=== PATIENT | female | born 1985 | race Caucasian/White ===

== ENCOUNTER 2016-10-02 19:36 | Emergency (ER) | payer OTHER ==
[2016-10-02 19:47] VITALS: BP 120/68
[2016-10-02] MEDS ORDERED: Ketorolac INJ* 60 MG/2 ML VIAL IM ONE (21:48)
--- NOTE | 2016-10-02 21:54 | UC ---
Back Pain HPI - HPI Summary HPI Summary: 31 y/o female presents to the urgent care c/o mid back pain since this morning. Pt reports she has 1 y/o twins and lately she has been doing some heavy lifting. This morning when she was at work she did a sudden movement and her back pain was exacerbated. Pain is 6/10 with movement and 4/10 at rest. No radiation, no tingling or numbness over the Lower extremities. Pt denies fever , SOB, chest pain, N/V/D, urinary or fecal incontinence or saddle anesthesia. - History of Current Complaint Hx Obtained From: Patient Hx Last Menstrual Period: 09/17/16 ?: No Onset/Duration: Gradual Onset, Lasting Days, Still Present Timing: Constant Severity Initially: Mild Severity Currently: Moderate Pain Intensity: 6 Pain Scale Used: 0-10 Numeric Back Pain: Is Discrete @ - mid back pain Character: Spasmodic Aggravating: Movement, Lifting, Bending Alleviating: Rest Associated Signs And Symptoms: Positive: Pain with Weight Bearing. Negative: Swelling, Fever, Weakness, Numbness, Tingling, Flank Pain, Bladder Incontinence , Bowel Incontinence, Weight Loss - Risk Factors AAA Risk Factors: Negative TAD Risk Factors: Negative Cauda Equina Risk Factors: Negative Epidural Abscess Risk Factors: Negative <Promise Brewer - Last Filed: 10/04/16 17:40> <Patricia Moreno - Last Filed: 10/04/16 20:46> - History of Current Complaint Chief Complaint: UCBackPain Stated Complaint: MIDDLE BACK PAIN Time Seen by Provider: 10/02/16 21:36 - Allergies/Home Medications Allergies/Adverse Reactions: Allergies Allergy/AdvReac Type Severity Reaction Status Date / Time No Known Allergies Allergy Verified 08/30/14 07:16 PMH/Surg Hx/FS Hx/Imm Hx Previously Healthy: Yes - Surgical History Surgical History: Yes Surgery Procedure, Year, and Place: 2006 [facility]; lap for fertility diag Mar 2014 ; wisdom teeth - Family History Known Family History: Positive: None - Social History Occupation: Employed Full-time Lives: With Family Alcohol Use: Occasionally Substance Use Type: None Smoking Status (MU): Never Smoked Tobacco <Promise Brewer - Last Filed: 10/04/16 17:40> Review of Systems Constitutional: Negative Skin: Negative Eyes: Negative ENT: Negative Respiratory: Negative Cardiovascular: Negative Gastrointestinal: Negative Genitourinary: Negative Motor: Negative Neurovascular: Negative Musculoskeletal: Other: - mid back pain Neurological: Negative Psychological: Negative All Other Systems Reviewed And Are Negative: Yes <Pormise Brewer - Last Filed: 10/04/16 17:40> Physical Exam Triage Information Reviewed: Yes Appearance: Well-Appearing, No Pain Distress, Well-Nourished, Thin Vital Signs: Initial Vital Signs Temp 97.7 F 10/02/16 19:44 Pulse 74 10/02/16 19:44 Resp 18 10/02/16 19:44 BP 120/68 10/02/16 19:44 Pulse Ox 100 10/02/16 19:44 Vital Signs Reviewed: Yes Eye Exam: Normal Eyes: Positive: Conjunctiva Clear - PERRLA, EOMI, fundi grossly normal ENT Exam: Normal ENT: Positive: Normal ENT inspection, Hearing grossly normal, Pharynx normal, TMs normal Dental Exam: Normal Neck exam: Normal Neck: Positive: Supple, Nontender, No Lymphadenopathy Respiratory Exam: Normal Respiratory: Positive: Chest non-tender, Lungs clear, Normal breath sounds Cardiovascular Exam: Normal Cardiovascular: Positive: RRR, No Murmur, Pulses Normal, Brisk Capillary Refill Abdominal Exam: Normal Abdomen Description: Positive: Nontender, No Organomegaly, Soft. Negative: CVA Tenderness (R), CVA Tenderness (L) Bowel Sounds: Positive: Present Musculoskeletal: Positive: Strength Intact, No Edema, Other: - BACK: Patient walked into the urgent care room with symmetric ambulation, No signs of limping , antalgic, able to bear weight. No signs of trauma, No masses palpated or scoliosis observed. Point tenderness at the level of T12-L1, paraspinal muscle spasm and tenderness at the same level. No CVAT, no flank ecchymosis . No sacroiliac notch tenderness, No saddle anesthesia.ROM: limited flexion/ extension/ lateral bending and rotation due to pain, Straight Leg Raise: negative. Patellar reflexes: brisk, symmetric Muscle strength lower extremities. Dorsiflexion/ plantar flexion of ankles. Heel/ toe walk. Lower extremities: Femoral, popliteal, posterior tibial, and dorsalis pedis pulses WNL Neurological Exam: Normal Psychological Exam: Normal Skin Exam: Normal <DaniellaPromise - Last Filed: 10/04/16 17:40> Vital Signs: Initial Vital Signs Temp 97.7 F 10/02/16 19:44 Pulse 74 10/02/16 19:44 Resp 18 10/02/16 19:44 BP 120/68 10/02/16 19:44 Pulse Ox 100 10/02/16 19:44 <Patricia Moreno - Last Filed: 10/04/16 20:46> Back Pain Course/Dx - Course Course Of Treatment: 31 y/o female presents to the urgent care c/o mid back pain since this morning. Pt reports she has 1 y/o twins and lately she has been doing some heavy lifting. This morning when she was at work she did a sudden movement and her back pain was exacerbated. Pain is 6/10 with movement and 4/10 at rest. No radiation, no tingling or numbness over the Lower extremities. Pt denies fever, SOB, chest pain, N/V/D, urinary or fecal incontinence or saddle anesthesia.Hx obtained. PE abnormal findings:BACK: Patient walked into the urgent care room with symmetric ambulation, No signs of limping, antalgic, able to bear weight. No signs of trauma, No masses palpated or scoliosis observed. Point tenderness at the level of T12-L1, paraspinal muscle spasm and tenderness at the same level. No CVAT, no flank ecchymosis . No sacroiliac notch tenderness, No saddle anesthesia.ROM: limited flexion/ extension/ lateral bending and rotation due to pain, Straight Leg Raise: negative. Patellar reflexes: brisk, symmetric Muscle strength lower extremities. Dorsiflexion/ plantar flexion of ankles. Heel/ toe walk. Lower extremities: Femoral, popliteal, posterior tibial, and dorsalis pedis pulses WNL. Pt Pr Flexeril and Naproxen PO to alleviate symptoms. Advised to wear a back support and avoid strenuou excercise or carrying her twins until symptoms resolve. F/u with PCP for further evaluation and treatment if symptoms do not improve. Pt understood and agreed and left the clinic ambulating. - Differential Dx/Diagnosis Differential Diagnosis/HQI/PQRI: Herniated Disc, Renal Colic, Strain, Sprain, Other - back spasms Provider Diagnoses: 1- Acute back pain w/ muscle spasm <Promise Brewer - Last Filed: 10/04/16 17:40> Discharge <Promise Brewer - Last Filed: 10/04/16 17:40> <Patricia Moreno - Last Filed: 10/04/16 20:46> - Discharge Plan Condition: Stable Disposition: HOME Prescriptions: Cyclobenzaprine TAB* [Flexeril 10 MG TAB*] 10 mg PO TID PRN #21 tab PRN Reason: Spasms - Back Naproxen TAB* [Naprosyn 250 mg TAB*] 500 mg PO Q8H PRN #30 tab PRN Reason: Pain Patient Education Materials: Acute Low Back Pain (ED), Muscle Spasm (ED) Referrals: Kentrell Gillis MD [Primary Care Provider] - 3 Days Additional Instructions: Please take medications as directed to alleviate symptoms of pain and spasm. If symptoms do not improve please return to the urgent care or f/u with your PCP for further evaluation and treatment. Please rest and avoid strenuous exercise or heavy lifting. Wear a back support until symptoms improve. Attestation Statement User Type: Provider - I was available for consult. This patient was seen by the advanced practice provider. The patient was not presented to, seen by, or examined by me.-Jeremy <Patricia Moreno - Last Filed: 10/04/16 20:46>
== END 2016-10-02 22:21 | disposition home or self-care (01) ==
LOC: UCEAST 19:36
DX: M54.9 Dorsalgia, unspecified (principal); M62.830 Muscle spasm of back; Z90.49 Acquired absence of other specified parts of digestive tract
CPT/HCPCS: 96372; 99212; G0463; J1885

== ENCOUNTER 2016-12-24 11:17 | Emergency (ER) | payer OTHER ==
[2016-12-24 11:27] VITALS: BP 134/72
--- NOTE | 2016-12-24 12:52 | UC ---
Ear Complaint HPI - HPI Summary HPI Summary: Patient presents with complaints of decreased hearing of both ears. She states she has a history of cerumen impactions and this feels the same way. She denies fever, chills, ear pain, sore throat associated with her concerns today. - History of Current Complaint Chief Complaint: UCEar Stated Complaint: EAR COMPLAINT Time Seen by Provider: 12/24/16 11:25 Hx Obtained From: Patient Hx Last Menstrual Period: 12/07/16 Onset/Duration: Gradual Onset, Lasting Days Pain Intensity: 0 Pain Scale Used: 0-10 Numeric Aggravating Factors: Nothing - Allergies/Home Medications Allergies/Adverse Reactions: Allergies Allergy/AdvReac Type Severity Reaction Status Date / Time No Known Allergies Allergy Verified 12/24/16 11:27 Home Medications: Home Medications NK [No Home Medications Reported] 12/24/16 [History Confirmed 12/24/16] PMH/Surg Hx/FS Hx/Imm Hx Previously Healthy: Yes - Surgical History Surgical History: Yes Surgery Procedure, Year, and Place: 2006 em[facility]; lap for fertility diag Mar 2014 ; wisdom teeth - Family History Known Family History: Positive: None - Social History Occupation: Employed Full-time Lives: Alone Alcohol Use: Occasionally Substance Use Type: None Smoking Status (MU): Never Smoked Tobacco - Immunization History Most Recent Influenza Vaccination: 12/18/16 Review of Systems Skin: Negative Eyes: Negative ENT: Negative, Other - decreased hearing Respiratory: Negative Cardiovascular: Negative Gastrointestinal: Negative Genitourinary: Negative Motor: Negative Neurovascular: Negative Musculoskeletal: Negative All Other Systems Reviewed And Are Negative: Yes Physical Exam Triage Information Reviewed: Yes Appearance: Well-Appearing Vital Signs: Initial Vital Signs Temp 98.2 F 12/24/16 11:22 Pulse 72 12/24/16 11:22 Resp 16 12/24/16 11:22 BP 134/72 12/24/16 11:22 Pulse Ox 100 12/24/16 11:22 Eye Exam: Normal ENT Exam: Normal ENT: Positive: Muffled/hoarse voice - b/l cerumen present. Dental Exam: Normal Neck exam: Normal Neck: Positive: 1 Respiratory Exam: Normal Cardiovascular Exam: Normal Abdominal Exam: Normal Musculoskeletal Exam: Normal Neurological Exam: Normal Psychological Exam: Normal Skin Exam: Normal Ear Complaint Course/Dx - Course Course Of Treatment: Patient presents with decreased hearing, and b/l cerumen present. The ears were irriagated with complete resolution of the hearing loss. Re-evaluation revealed transparent TM's. She tolerated the procedure well, and was discharged home in stabl condition. - Differential Dx/Diagnosis Differential Diagnosis/HQI/PQRI: Cerumen Impaction Provider Diagnoses: cerumen inpaction Discharge - Discharge Plan Condition: Stable Disposition: HOME Patient Education Materials: Cerumen Impaction (ED) Referrals: Kentrell Gillis MD [Primary Care Provider] -
== END 2016-12-24 12:03 | disposition home or self-care (01) ==
LOC: UCEAST 11:17
DX: H61.20 Impacted cerumen, unspecified ear (principal)
CPT/HCPCS: 99213; G0463

== ENCOUNTER 2017-08-02 12:22 | Emergency (ER) | payer OTHER ==
[2017-08-02 13:23] VITALS: BP 108/72
--- NOTE | 2017-08-02 14:07 | UC ---
Throat Pain/Nasal True HPI - HPI Summary HPI Summary: 32 yo WF c/o B/L sinus and frontal sinus [place], congestion associated with clear nasal drainage x 4 days, worsening - History of Current Complaint Chief Complaint: UCGeneralIllness Stated Complaint: SINUS COMPLAINT Time Seen by Provider: 08/02/17 13:45 Hx Obtained From: Patient Hx Last Menstrual Period: 08/02/17 Onset/Duration: Sudden Onset Severity: Severe Pain Intensity: 6 Cough: Nonproductive Associated Signs & Symptoms: Positive: Negative - Allergies/Home Medications Allergies/Adverse Reactions: Allergies Allergy/AdvReac Type Severity Reaction Status Date / Time No Known Allergies Allergy Verified 08/02/17 13:18 PMH/Surg Hx/FS Hx/Imm Hx - Additional Past Medical History Additional PMH: sinusitis Previously Healthy: Yes - Surgical History Surgical History: Yes Surgery Procedure, Year, and Place: 2006 em[facility]; lap for fertility diag Mar 2014 ; wisdom teeth, September 2015 - Family History Known Family History: Positive: None - Social History Alcohol Use: Occasionally Substance Use Type: None Smoking Status (MU): Never Smoked Tobacco - Immunization History Most Recent Influenza Vaccination: 12/18/16 Review of Systems Constitutional: Negative Skin: Negative Eyes: Negative ENT: Sore Throat, Nasal Discharge, Sinus Congestion, Sinus Pain/Tenderness Respiratory: Negative Cardiovascular: Negative Gastrointestinal: Negative Genitourinary: Negative Motor: Negative Neurovascular: Negative Musculoskeletal: Negative Neurological: Negative Psychological: Negative All Other Systems Reviewed And Are Negative: Yes Physical Exam Triage Information Reviewed: Yes Appearance: Pain Distress Vital Signs: Initial Vital Signs Temp 37.0 C 08/02/17 13:19 Pulse 96 08/02/17 13:19 Resp 18 08/02/17 13:19 BP 108/72 08/02/17 13:19 Pulse Ox 100 08/02/17 13:19 Eye Exam: Normal ENT: Positive: Pharyngeal erythema, Nasal congestion, Nasal drainage, TMs normal , Sinus tenderness, Uvula midline. Negative: Tonsillar swelling, Tonsillar exudate Dental Exam: Normal Neck exam: Normal Neck: Positive: 1 Respiratory: Positive: Rhonchi Cardiovascular Exam: Normal Abdominal Exam: Normal Musculoskeletal Exam: Normal Neurological Exam: Normal Psychological Exam: Normal Skin Exam: Normal Throat Pain/Nasal Course/Dx - Course Course Of Treatment: B/ rhonchorous cough- would old off on taking abx but prescribed to take in case sx worsen - Differential Dx/Diagnosis Provider Diagnoses: acute sinusitis. bronchitis Discharge - Sign-Out/Discharge Documenting (check all that apply): Discharge/Admit/Transfer - Discharge Plan Condition: Stable Disposition: HOME Prescriptions: Azithromycin TAB* [Zithromax TAB (Z-MARIA DEL CARMEN) 250 mg #6 tabs] 2 tab PO .TODAY, THEN 1 DAILY #1 [facility]ia [facility]men Loratadine/Pseudoephedrine [Claritin-D 12 Hour Tablet] 1 each PO BID 10 Days # 20 tab.er.12h Patient Education Materials: Rhinosinusitis (ED), Acute Bronchitis (ED) Referrals: Kentrell Gillis MD [Primary Care Provider] - - Billing Disposition and Condition Condition: STABLE Disposition: HOME
== END 2017-08-02 14:08 | disposition home or self-care (01) ==
LOC: UCEAST 12:22
DX: J01.90 Acute sinusitis, unspecified (principal); J40 Bronchitis, not specified as acute or chronic
CPT/HCPCS: 99212; G0463

== ENCOUNTER 2018-02-16 09:04 | Emergency (ER) | payer OTHER ==
[2018-02-16 09:10] VITALS: BP 122/79
--- NOTE | 2018-02-16 09:13 | UC ---
Throat Pain/Nasal True HPI - HPI Summary HPI Summary: 32 y/o female presents to the urgent care c/o sore throat and a dry cough for the past 4 days. Today she developed mild [place] and body aches, hoarseness. Pain w / swallowing 06/18. Pt has taken Teraflu to alleviate symptoms. She got the influenza vaccine about a month ago. Pt denies fever, SOB, chest pain, abdominal pain, N/v/d. - History of Current Complaint Chief Complaint: UCRespiratory Stated Complaint: SORE THROAT Time Seen by Provider: 02/16/18 09:12 Hx Obtained From: Patient Hx Last Menstrual Period: 02/08/18 Onset/Duration: Gradual Onset, Lasting Days - 4 days, Still Present, Worse Since - today Severity: Moderate Pain Intensity: 6 - sore throat Pain Scale Used: 0-10 Numeric Cough: Nonproductive - dry Associated Signs & Symptoms: Positive: Nasal Discharge - clear - Epiglottits Risk Factors Epiglottis Risk Factors: Negative - Allergies/Home Medications Allergies/Adverse Reactions: Allergies Allergy/AdvReac Type Severity Reaction Status Date / Time No Known Allergies Allergy Verified 02/16/18 09:10 PMH/Surg Hx/FS Hx/Imm Hx Previously Healthy: Yes - Pt denies PMHX - Surgical History Surgical History: Yes Surgery Procedure, Year, and Place: 2006 em[facility]; lap for fertility diag Mar 2014 ; wisdom teeth, September 2015 - Family History Known Family History: Positive: Hypertension - Social History Occupation: Employed Full-time Lives: With Family Alcohol Use: Occasionally Substance Use Type: None Smoking Status (MU): Never Smoked Tobacco - Immunization History Most Recent Influenza Vaccination: 12/18/16 Review of Systems All Other Systems Reviewed And Are Negative: Yes Constitutional: Positive: Negative Skin: Positive: Negative Eyes: Positive: Negative ENT: Positive: Sore Throat, Nasal Discharge - clear, Other - PND clear, hoarseness Respiratory: Positive: Cough - dry Cardiovascular: Positive: Negative Gastrointestinal: Positive: Negative Genitourinary: Positive: Negative Motor: Positive: Negative Neurovascular: Positive: Negative Musculoskeletal: Positive: Negative Neurological: Positive: Negative Psychological: Positive: Negative Is Patient Immunocompromised?: No Physical Exam - Summary Physical Exam Summary: VITAL SIGNS: Reviewed. GENERAL: Patient is a well developed and nourished female who is sitting comfortable in the examining table. Patient is not in any acute respiratory distress. HEAD AND FACE: No signs of trauma. No ecchymosis, hematomas or skull depressions. No sinus tenderness. EYES: PERRLA, EOMI x 2, No injected conjunctiva, no nystagmus. No photophobia. EARS: Hearing grossly intact. Ear canals and tympanic membranes are within normal limits. MOUTH: Positive pharynx with erythema, mild exudates, palatal petechiae. NO tonsillar enlargement with exudate. Uvula in midline. NECK: Supple, trachea is midline, Positive anterior cervical lymphadenopathy, no JVD, no carotid bruit, no c-spine tenderness, neck with full ROM. No meningeal signs, no Kernig's or brudzinskis signs. CHEST: Symmetric, no tenderness at palpation LUNGS: Clear to auscultation bilaterally. No wheezing or crackles. CVS: Regular rate and rhythm, S1 and S2 present, no murmurs or gallops appreciated. ABDOMEN: Soft, non-tender. No signs of distention. No rebound no guarding, and no masses palpated. Bowel sounds are normal. EXTREMITIES: FROM in all major joints, no edema, no cyanosis or clubbing. NEURO: Alert and oriented x 3. No acute neurological deficits. Speech is normal and follows commands. SKIN: Dry and warm Triage Information Reviewed: Yes Vital Signs: Initial Vital Signs Temp 96.3 F 02/16/18 09:06 Pulse 82 02/16/18 09:06 Resp 16 02/16/18 09:06 BP 122/79 02/16/18 09:06 Pulse Ox 100 02/16/18 09:06 Throat Pain/Nasal Course/Dx - Course Course Of Treatment: 32 y/o female presents to the urgent care c/o sore throat and a dry cough for the past 4 days. Today she developed mild [place] and body aches , hoarseness. Pain w/ swallowing 10. Pt has taken Teraflu to alleviate symptoms. She got the influenza vaccine about a month ago. Pt denies fever, SOB , chest pain, abdominal pain, N/v/d. Hx obtained. Pt w/ URI on examination. Rapid strep= negative. Pt Rx ibuprofen PO to alleviates symptoms. Advised on hand washing. Pt advised to rest, increase fluid intake, eat well and avoid strenuous exercise, rest her voice. If symptoms do not improve or worsen advised to return to the urgent care or f/u with her PCP in 3 days for further evaluation and treatment. Pt understood and agreed with plan of care. - Differential Dx/Diagnosis Differential Diagnosis/HQI/PQRI: Influenza, Laryngitis, Mononucleosis, Pharyngitis, Sinusitis, Tonsillitis, URI Provider Diagnosis: Upper respiratory infection Discharge - Sign-Out/Discharge Documenting (check all that apply): Patient Departure - d/c home All imaging exams completed and their final reports reviewed: No Studies - Discharge Plan Condition: Stable Disposition: HOME Prescriptions: Ibuprofen TAB* [Motrin TAB* 600 MG] 600 mg PO Q6H PRN #30 tab PRN Reason: Pain Patient Education Materials: Upper Respiratory Infection (ED) Forms: *Work Release Referrals: Kentrell Gillis MD [Primary Care Provider] - 3 Days Additional Instructions: 1- Rapid strep was negative. 2-Please take ibuprofen PO q6-8hrs prn as instructed after meals to alleviate pain and swelling. Increase fluid intake, eat well, rest and avoid strenuous exercise. Rest your voice 3-If symptoms do not improve or worsen please return to the urgent care or f/u with your PCP in 3 days for further evaluation and treatment. - Billing Disposition and Condition Condition: STABLE Disposition: Home
== END 2018-02-16 09:40 | disposition home or self-care (01) ==
LOC: UCEAST 09:04
DX: J06.9 Acute upper respiratory infection, unspecified (principal)
CPT/HCPCS: 87651; 99212; G0463

== ENCOUNTER 2022-02-02 08:52 | Inpatient (IN) ==
[~2022-02-02 08:52] MED LIST: Acetaminophen IV 1 GM/100ML 1,000 MG/100 ML BAG IV SCH
[2022-02-02] MEDS ORDERED: Buffered Lidocaine 1% SYRIN 1 ml INTRADERM ONE (10:06)
[2022-02-02] MEDS ORDERED: Lactated Ringers 1000 ml BAG 1,000 ML IV ONE (10:06)
[2022-02-02] MEDS ORDERED: ceFAZolin 2 GM in NS PREMIX 2 GM/100 ML BAG IVPB ONE (10:17)
[2022-02-02 10:22] LABS: ABS Lymphocytes 1.2 10^3/ul (1.0-4.8); ABS Monocytes 0.8 10^3/ul (0-0.8); ABS Neutrophils 8.9 10^3/ul (1.5-7.7); Eosinophil % 0.4 %; Hematocrit 36 % (35-47); Hemoglobin 12.1 g/dL (12.0-16.0); Lymphocyte % 10.6 %; Mean Corpuscular HGB Conc 34 g/dL (31-36); Mean Corpuscular Hemoglobin 32 pg (27-31); Mean Corpuscular Volume 94 fL (80-97); Mean Platelet Volume 8.9 fL (7.4-10.4); Platelet Count 178 10^3/uL (150-450); Red Blood Count 3.79 10^6 /uL (3.70-4.87); Red Cell Distribution Width 14 % (10-15); White Blood Count 10.9 10^3/uL (3.5-10.8)
[2022-02-02] MEDS ORDERED: Morphine PF AMP (0.5MG/ML) 5 MG/10 ML AMP ONE (10:32)
[2022-02-02] MEDS ORDERED: Dexamethasone IV 4 MG/ML VIAL 1 ml VIAL ONE (10:34)
[2022-02-02] MEDS ORDERED: Oxytocin 10 UNITS/ML 1 ML VIAL ONE ×2 (10:34→12:16)
[2022-02-02] MEDS ORDERED: Ondansetron 4 mg VIAL 2 MG/ML 2 ml VIAL ONE (10:34)
[2022-02-02] MEDS ORDERED: Sodium Citrate/Citric Acid LIQ 15 ML UDC PO ONE (10:41)
[2022-02-02] MEDS ORDERED: ceFOXitin 2 GM IVPREMIX 2 GM/50 ML BAG ONE (10:43)
[2022-02-02] MEDS ORDERED: Sodium Citrate/Citric Acid LIQ 15 ML UDC ONE (10:43)
[2022-02-02 10:44] LABS: Urine Benzodiazepine Screen None Detected (None Detect); Urine Cannabinoids Screen None Detected (None Detect); Urine Opiates Screen None Detected (None Detect)
[2022-02-02] MEDS ORDERED: Metoclopramide 5 MG/ML VIAL (10 mg) IV PRN (10:51)
[2022-02-02] MEDS ORDERED: Acetaminophen IV 1 GM/100ML 1,000 MG/100 ML BAG IV PRN (10:51)
[2022-02-02] MEDS ORDERED: Naloxone 0.4 mg VIAL 0.4 mg/ml 1 ml VIAL IV PUSH PRN (10:51)
[2022-02-02] MEDS ORDERED: Ondansetron 4 mg VIAL 2 MG/ML 2 ml VIAL IV PRN (10:51)
[2022-02-02] MEDS ORDERED: Lactated Ringers 1000 ml BAG 1,000 ML IV SCH ×2 (11:00→14:00)
[2022-02-02 12:10] LABS: Urine Appearance Clear; Urine Bilirubin Negative (Negative); Urine Blood 2+ (Negative); Urine Color Straw; Urine Glucose Negative (Negative); Urine Ketones Negative (Negative); Urine Nitrite Negative (Negative); Urine Protein Negative (Negative); Urine Specific Gravity 1.003 (1.002-1.030); Urine Urobilinogen Negative (Negative)
[2022-02-02 12:16] LABS: Urine Bacteria Absent (Absent); Urine Red Blood Cell 1+(3-5/hpf) (Absent); Urine Squamous Epithelial Cell Present (Absent); Urine White Blood Cell Absent (Absent)
[2022-02-02] MEDS ORDERED: Methylergonovine 0.2 mg AMPULE 1 ml AMP ONE (12:16)
[2022-02-02] MEDS ORDERED: Phenylephrine 40 mcg/mL 10mL (400mcg) SYRINGE ONE (12:18)
[2022-02-02] MEDS ORDERED: Witch Hazel PAD JAR TOPICAL PRN (13:05)
[2022-02-03 06:24] LABS: ABS Eosinophils 0.2 10^3/ul (0-0.6); ABS Lymphocytes 1.8 10^3/ul (1.0-4.8); ABS Monocytes 1.2 10^3/ul (0-0.8); ABS Neutrophils 11.8 10^3/ul (1.5-7.7); Eosinophil % 1.2 %; Hematocrit 29 % (35-47); Hemoglobin 9.9 g/dL (12.0-16.0); Lymphocyte % 11.9 %; Mean Corpuscular HGB Conc 34 g/dL (31-36); Mean Corpuscular Hemoglobin 32 pg (27-31); Mean Corpuscular Volume 96 fL (80-97); Mean Platelet Volume 9.2 fL (7.4-10.4); Platelet Count 160 10^3/uL (150-450); Red Blood Count 3.07 10^6 /uL (3.70-4.87); Red Cell Distribution Width 14 % (10-15)
[2022-02-03] MEDS ORDERED: oxyCODONE/Acetamin 5/325 mg TAB PO PRN (10:51)
[2022-02-03] MEDS ORDERED: RHO D Immune Globulin (HUMAN) 300 MCG = 1,500 I.U. INJ IM ONE (15:05)
[2022-02-04] MEDS ORDERED: RHO D Immune Globulin (HUMAN) 300 MCG = 1,500 I.U. INJ IM SCH
[2022-02-05 07:57] VITALS: BP 119/72
== END 2022-02-05 13:25 | disposition home or self-care (01) | DRG 540 ==
LOC: MCHOBOUT 08:52 → MCHOB 09:51
PROVIDERS: ADMIT Obstetrics & Gynecology; ATTEND Obstetrics & Gynecology